=== PATIENT | female | born 1935 | race Hispanic/Latino ===

== ENCOUNTER 2018-05-08 08:30 | Observation (INO) | payer MEDICARE ==
[2018-05-08] VITALS (25 sets, daily range): BP systolic 127–180; BP diastolic 50–73
[~2018-05-08] VITALS: Ht 157.5 cm; Wt 77.5 kg
[~2018-05-08 08:30] MED LIST: LEVO88TA7 PO; LOSA1TAB42 PO; METF-444 PO; METO50TA18 PO; MISO200T4 PO; OMEP40CA37 PO; SIMV10TA6 PO; SODIUM CHLORIDE 0.9% 1000ML 1,000 ML IV ONE
[2018-05-08] MEDS ORDERED: PROPOFOL 10 MG/ML 20ML VIAL IV ONE ×2 (10:39→10:56)
[2018-05-08] MEDS ORDERED: SUCCINYLCHOLINE CHLORIDE 20 MG/ML 10 ML VIAL ONE (10:45)
[2018-05-08] MEDS ORDERED: BOTULINUM TOXIN TYPE A 100 UNITS/VIAL INJ SCH (11:00)
[2018-05-08] MEDS ORDERED: METHYLPREDNISOLONE SOD SUCC 40MG/ML 1ML ONE (11:14)
--- NOTE | 2018-05-08 11:29 | NUR ---
125MG IV SOLUMEDROL AT 1120 PER [facility] DOCTOR ORDERS
[2018-05-08] MEDS ORDERED: HYDRALAZINE HCL 20 MG/ML VIAL ONE (11:46)
[2018-05-08] MEDS ORDERED: MEPERIDINE-PF 25 MG/ML SYG ONE (12:02)
--- NOTE | 2018-05-08 12:39 | NUR ---
ASSESSMENT RECEIVED PT FRO PACU STAFF Jasmyn MIRELES RN. PT HAS WHHEZING TO LUNGS. 02 SAT 93-94% ON ROOM AIR. Vilma LOPEZ CRNA MADE AWARE. EIARI COME EVALUATE.
--- NOTE | 2018-05-08 12:50 | NUR ---
RESP. Vilma LOPEZ CRNA HERE TO EVALUATE PT. ORDERS RECEIVED TO GIVE PT DUO NEB TREATMENT.
[2018-05-08] MEDS ORDERED: IPRATROPIUM/ALBUTEROL SULFATE 3 ML SOLUTION IH ONE (12:56)
--- NOTE | 2018-05-08 12:58 | NUR ---
RESP RESP HERE. TX BEING ADMINISTERED
[2018-05-08] MEDS ORDERED: IPRATROPIUM/ALBUTEROL SULFATE 3 ML SOLUTION IH SCH (13:00)
--- NOTE | 2018-05-08 13:05 | NUR ---
DR JAYA LAKE AND DR. XIE HERE TO EVALUATE PT. DISCUSSED WITH PT HER FINDINGS/ BREATHING ISSUES. ORDERS RECEIVED TO ADMIT PT OVERNIGHT FOR OBSERVATION. COUSIN AT BEDSIDE. PT WILL BE ADMITTED.
[2018-05-08] MEDS: LEVOFLOXACIN 750 MG/D5W 150 ML 150 ML IV SCH (14:11)
--- NOTE | 2018-05-08 14:46 | NUR ---
REPORT REPORT GIVEN TO Tosin PATEL RN. PT TRANSFERRED VIA STRETCHER. DENIES ANY DIFFICULTY BREATHING.
[2018-05-08] MEDS ORDERED: CLON-465 PO (15:20)
[2018-05-08] MEDS ORDERED: MAGN250T10 PO (15:21)
--- NOTE | 2018-05-08 19:58 | NUR ---
PT S/P EGD UPDATE PT S/P EGD ADMITTED ON THE FLOOR WITH STABLE CONDITION, ROOM AIR WITH O2 SAT ABOVE 96'S, NO C/O OF DISCOMFORT OR SOB, PT IN STABLE CONDITION AND WILL CONTINUE TO BE MONITORED.
[2018-05-08] MEDS: BUDESONIDE 0.5 MG/2 ML INH IH SCH (20:15)
[2018-05-08] MEDS: IPRATROPIUM/ALBUTEROL SULFATE 3 ML SOLUTION IH SCH (23:20)
[2018-05-09 04:00] VITALS: BP 148/68
[2018-05-09 04:34] LABS: HEMATOCRIT 39.8 % (36-48); MEAN CORPUSCULAR HEMOGLOBIN 29.8 pg (27.0-33.0); MEAN CORPUSCULAR HGB CONC 32.8 g/dL (32.0-36.0); MEAN CORPUSCULAR VOLUME 90.7 fL (79-99); PLATELET COUNT (AUTO) 296 K/uL (130-400); RED BLOOD CELL COUNT(AUTO) 4.39 MIL/uL (4.00-5.50); RED CELL DISTRIBUTION WIDTH 15.8 % (11.0-15.5)
[2018-05-09 04:50] LABS: INR 1.06 (0.85-1.15); PROTHROMBIN TIME 11.1 SEC (9.6-11.6)
[2018-05-09 05:00] LABS: ALBUMIN 2.9 g/dL (3.5-5.0); BILIRUBIN,TOTAL 0.4 mg/dL (0.2-1.0); CREATININE 1.4 mg/dL (0.5-1.5); POTASSIUM 5.2 mmol/L (3.5-5.1); TOTAL PROTEIN, SERUM 6.4 g/dL (6.0-8.3)
[2018-05-09] MEDS: IPRATROPIUM/ALBUTEROL SULFATE 3 ML SOLUTION IH SCH ×4 (06:18→23:26)
[2018-05-09] MEDS: BUDESONIDE 0.5 MG/2 ML INH IH SCH ×2 (06:31→18:04)
[2018-05-09] MEDS: PREDNISONE 20 MG TABLET PO SCH (08:33)
[2018-05-09 08:42] VITALS: BP 137/58
[2018-05-09] MEDS ORDERED: PANTOPRAZOLE 40 MG/VIAL IVP SCH (09:00)
--- NOTE | 2018-05-09 11:40 | NUR ---
CHART CHECK COMPLETED. 82-YEAR-OLD FEMALE THAT PRESENTED FOR AN ELECTIVE EGD EARLY IN THE DAY FOR DYSPHAGIA AND HISTORY OF ACHALASIA. POSTPROCEDURE PATIENT WAS COMPLAINING OF SHORTNESS OF BREATH AND CT OF THE CHEST DEMONSTRATED LEFT LOWER LOBE INFILTRATE. PATIENT WAS PLACED IN OBSERVATION UNDER HOSPITALIST SERVICES OVERNIGHT TO MAKE CERTAIN PATIENT'S RESPIRATORY CONDITION DOES NOT WORSEN. PAST MEDICAL HISTORY SIGNIFICANT FOR : 1. ESSENTIAL HYPERTENSION 2. HYPERLIPIDEMIA 3. HYPOTHYROIDISM 4. 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 SURGICAL HISTORY: 1. 2, 3. ABDOMINAL HYSTERECTOMY. PER NURSE LYNN, PT IS DOING WELL WITH NO SWALLOWING DIFFICULTY AT THIS TIME. SKILLED SPEECH THERAPY IS NOR RECOMMENDED. Addendum: 05/09/18 at 1142 by IQRA POPE [facility] Amended: Links added.
[2018-05-09 12:00] VITALS: BP 135/63
[2018-05-09] MEDS: LEVOFLOXACIN 750 MG/D5W 150 ML 150 ML IV SCH (14:58)
[2018-05-09] MEDS: CLONIDINE HCL 0.1 MG TABLET PO SCH ×2 (15:02→21:38)
--- NOTE | 2018-05-09 16:30 | NUR ---
[place] W PT ALONE, AAOX3, ENG SPEAKING, LIVES ALONE, IND OF ADLS, NO DME, FEELS SAFE TO RETURN, DC PLAN HOME Addendum: 05/09/18 at 1932 by JOHN FISCHER RN CM Amended: Links added.
[2018-05-09 16:47] VITALS: BP 151/61
[2018-05-09 19:20] VITALS: BP 138/57
[2018-05-09] MEDS ORDERED: SIMVASTATIN 10 MG TABLET PO SCH (21:00)
[2018-05-09 23:25] VITALS: BP 118/58
[2018-05-10 03:00] VITALS: BP 143/66
[2018-05-10 04:59] LABS: BASOPHILS % (AUTO) 0.3 % (0.0-5.0); EOSINOPHILS % (AUTO) 0.2 % (0.0-8.0); HEMATOCRIT 36.4 % (36-48); LYMPHOCYTES % (AUTO) 22.9 % (21.0-51.0); MEAN CORPUSCULAR HEMOGLOBIN 30.1 pg (27.0-33.0); MEAN CORPUSCULAR HGB CONC 33.2 g/dL (32.0-36.0); MEAN CORPUSCULAR VOLUME 90.5 fL (79-99); MONOCYTES % (AUTO) 8.9 % (3.0-13.0); NEUTROPHILS % (AUTO) 67.7 % (40.0-77.0); PLATELET COUNT (AUTO) 278 K/uL (130-400); RED BLOOD CELL COUNT(AUTO) 4.02 MIL/uL (4.00-5.50); WHITE BLOOD COUNT (AUTO) 10.2 K/uL (4.8-10.8)
[2018-05-10 05:08] LABS: CREATININE 1.1 mg/dL (0.5-1.5); POTASSIUM 3.6 mmol/L (3.5-5.1)
[2018-05-10] MEDS: IPRATROPIUM/ALBUTEROL SULFATE 3 ML SOLUTION IH SCH ×2 (06:12→11:48)
[2018-05-10] MEDS: BUDESONIDE 0.5 MG/2 ML INH IH SCH (06:12)
[2018-05-10] MEDS ORDERED: LEVOTHYROXINE 88 MCG TABLET PO SCH (06:30)
[2018-05-10 07:00] VITALS: BP 133/66
[2018-05-10] MEDS ORDERED: LEVO500T2 PO (08:08)
[2018-05-10] MEDS ORDERED: LOSARTAN HCTZ PO SCH (09:00)
[2018-05-10] MEDS ORDERED: METOPROLOL TARTRATE 50 MG TAB PO SCH (09:00)
[2018-05-10] MEDS ORDERED: PANTOPRAZOLE SODIUM 40 MG TABLET.DR PO SCH (09:00)
[2018-05-10] MEDS ORDERED: MAGNESIUM OXIDE 400 MG TABLET PO SCH (09:00)
[2018-05-10] MEDS: PREDNISONE 20 MG TABLET PO SCH (09:22)
[2018-05-10] MEDS: CLONIDINE HCL 0.1 MG TABLET PO SCH (09:23)
[2018-05-10 11:00] VITALS: BP 120/61
[2018-05-10] MEDS: LEVOFLOXACIN 750 MG/D5W 150 ML 150 ML IV SCH (11:47)
--- NOTE | 2018-05-10 12:30 | NUR ---
PT D/C WITH EDUCATION GIVEN USING TEACH BACK SATISFACTORILY
== END 2018-05-10 15:41 | disposition home or self-care (01) ==
LOC: ENDO 08:30 → DAH 08:30 → ENDO 08:31 → DAHIP 08:31 → 3CH 14:41
PROVIDERS: ADMIT Internal Medicine; ATTEND Internal Medicine
DX: T18.128A Food in esophagus causing other injury, initial encounter (principal); K21.0 Gastro-esophageal reflux disease with esophagitis; K22.2 Esophageal obstruction; E78.5 Hyperlipidemia, unspecified; E03.9 Hypothyroidism, unspecified; E87.5 Hyperkalemia; I10 Essential (primary) hypertension; I63.9 Cerebral infarction, unspecified; J44.9 Chronic obstructive pulmonary disease, unspecified; J69.0 Pneumonitis due to inhalation of food and vomit; K22.0 Achalasia of cardia; K31.7 Polyp of stomach and duodenum; K31.89 Other diseases of stomach and duodenum; G30.9 Alzheimer's disease, unspecified; F02.80 Dementia in other diseases classified elsewhere, unspecified severity, without behavioral disturbance, psychotic disturbance, mood disturbance, and anxiety; X58.XXXA Exposure to other specified factors, initial encounter; Y93.89 Activity, other specified; Y92.89 Other specified places as the place of occurrence of the external cause; Y99.8 Other external cause status; Z87.891 Personal history of nicotine dependence; Z83.3 Family history of diabetes mellitus; Z88.8 Allergy status to other drugs, medicaments and biological substances; Z82.49 Family history of ischemic heart disease and other diseases of the circulatory system; Z80.3 Family history of malignant neoplasm of breast; Z90.710 Acquired absence of both cervix and uterus
CPT/HCPCS: 36415 ×2; 43236; 43239; 43247; 43249; 71045 ×2; 80048; 80053; 82948; 84132; 85025; 85027; 85610; 88305; 88342; 93005; 94640 ×12; 94664; 96365; 96366 ×2; C9113; G0378 ×55; J0330; J0360; J0585; J1956 ×3; J2175; J2704 ×2; J2920; J2930; J7030

== ENCOUNTER → 2018-05-23 | Outpatient (CLI) | payer MEDICARE ==
[~2018-05-23] MED LIST changes: +CLON-465 PO; +LEVO500T2 PO; +MAGN250T10 PO; -METF-444 PO; -SODIUM CHLORIDE 0.9% 1000ML 1,000 ML IV ONE
== END | disposition home or self-care (01) ==
LOC: RAH 11:50
PROVIDERS: ATTEND Internal Medicine
DX: R05 Cough (principal); R60.0 Localized edema
CPT/HCPCS: 71046; 93925; 93970

== ENCOUNTER 2018-10-01 05:30 | Day surgery (SDC) | payer MEDICARE ==
[~2018-10-01] VITALS: Ht 154.9 cm; Wt 77.6 kg
[~2018-10-01 05:30] MED LIST changes: -LEVO500T2 PO; -LOSA1TAB42 PO
[2018-10-01] MEDS ORDERED: SODIUM CHLORIDE 0.9% 1000ML 1,000 ML IV ONE (06:20)
[2018-10-01 06:29] VITALS: BP 137/61
[2018-10-01] MEDS ORDERED: BOTULINUM TOXIN TYPE A 100 UNITS/VIAL INJ SCH (06:45)
[2018-10-01] MEDS ORDERED: PROPOFOL 10 MG/ML 20ML VIAL IV ONE (06:53)
[2018-10-01 07:06] VITALS: BP 106/52
[2018-10-01 07:10] VITALS: BP 104/43
[2018-10-01 07:15] VITALS: BP 106/52
[2018-10-01 07:30] VITALS: BP 104/53
== END 2018-10-01 07:39 | disposition home or self-care (01) ==
LOC: ENDO 05:30 → DAH 05:30 → ENDO 07:39
PROVIDERS: ATTEND Internal Medicine
DX: K22.2 Esophageal obstruction (principal); K31.89 Other diseases of stomach and duodenum; I10 Essential (primary) hypertension; E78.5 Hyperlipidemia, unspecified; Z68.32 Body mass index [BMI] 32.0-32.9, adult; Z90.710 Acquired absence of both cervix and uterus; Z98.890 Other specified postprocedural states; Z79.899 Other long term (current) drug therapy; K21.0 Gastro-esophageal reflux disease with esophagitis; E03.9 Hypothyroidism, unspecified
CPT/HCPCS: 43236; 43249; A4606; J0585; J2704; J7030